=== PATIENT | female | born 1940 | race Caucasian/White ===

== ENCOUNTER → 2020-01-22 | Outpatient (CLI) | payer MEDICARE ==
[2020-01-22 12:35] LABS: EOS # 0.1 (0.04-0.40); EOS % 1.1 % (1.0-5.0); HEMATOCRIT 47.5 % (37.0-47.0); HEMOGLOBIN 14.6 g/dL (12.5-16.0); MEAN CELL VOLUME 95 fl (78-100); MEAN CORPUSCULAR HEMOGLOBIN 29 pg (27-31); MEAN CORPUSCULAR HGB CONC 31 g/dL (33-37); MONO # 0.4 (0.20-0.80); NEU # 5.5 (1.40-6.50); PLATELET COUNT 403 K/mm3 (130-400); RED BLOOD COUNT 4.99 M/mm3 (4.10-5.30); RED CELL DISTRIBUTION WIDTH 15.1 % (11.5-14.5)
[2020-01-22 13:01] LABS: ALBUMIN 3.3 g/dL (3.4-4.8); POTASSIUM 4.1 mmol/L (3.5-5.1)
[2020-01-22 13:02] LABS: CALCIUM 10.1 mg/dL (8.3-10.5)
[2020-01-22 13:03] LABS: TOTAL PROTEIN 8.3 g/dL (6.2-8.1)
[2020-01-22 13:05] LABS: TOTAL BILIRUBIN 0.4 mg/dL (0.2-1.2)
== END ==
LOC: RAD 12:04
PROVIDERS: Family Medicine
DX: Z00.00 Encounter for general adult medical examination without abnormal findings (principal); Z13.6 Encounter for screening for cardiovascular disorders; E78.5 Hyperlipidemia, unspecified; R73.9 Hyperglycemia, unspecified; E55.9 Vitamin D deficiency, unspecified; M79.89 Other specified soft tissue disorders; E03.9 Hypothyroidism, unspecified; M81.0 Age-related osteoporosis without current pathological fracture

== ENCOUNTER → 2020-01-23 | Outpatient (CLI) | payer MEDICARE | LOC: LAB 07:34 | DX: Z00.00 Encounter for general adult medical examination without abnormal findings (principal); R73.9 Hyperglycemia, unspecified ==

== ENCOUNTER → 2020-02-05 | Outpatient (CLI) | payer MEDICARE | LOC: MAMMO 02-04 13:45 → RAD 12:59 → MAMMO 13:45 | DX: Z13.820 Encounter for screening for osteoporosis (principal); C50.919 Malignant neoplasm of unspecified site of unspecified female breast; M81.0 Age-related osteoporosis without current pathological fracture ==

== ENCOUNTER 2020-09-05 22:40 | Emergency (ER) | payer MEDICARE ==
[2020-09-05 23:10] LABS: HEMATOCRIT 56.9 % (37.0-47.0); HEMOGLOBIN 17.2 g/dL (12.5-16.0); MEAN CELL VOLUME 96 fl (78-100); MEAN CORPUSCULAR HEMOGLOBIN 29 pg (27-31); MEAN CORPUSCULAR HGB CONC 30 g/dL (33-37); MEAN PLATELET VOLUME 9.7 fl (7.4-10.4); PLATELET COUNT 263 K/mm3 (130-400); RED CELL DISTRIBUTION WIDTH 17.1 % (11.5-14.5); WHITE BLOOD COUNT 17.8 K/mm3 (4.8-10.8)
[2020-09-05 23:33] LABS: LYMPHOCYTE 6 % (20-51); MONOCYTE 6 % (3-10); NEUTROPHILS 88 % (42-75)
[2020-09-05 23:47] LABS: ALBUMIN 3.6 g/dL (3.4-4.8); CALCIUM 9.6 mg/dL (8.3-10.5); POTASSIUM 5.3 mmol/L (3.5-5.1); TOTAL BILIRUBIN 0.9 mg/dL (0.2-1.2); TOTAL PROTEIN 7.9 g/dL (6.2-8.1); TROPONIN-I 0.11 ng/mL (<0.030)
[2020-09-06] MEDS ORDERED: LATANOPROST 2.2.5 ML OU (00:52)
[2020-09-06] MEDS ORDERED: CARDIZEM CD 24240 MG PO (00:52)
[2020-09-06] MEDS ORDERED: PREDNISONE20 M1 PO (00:53)
[2020-09-06] MEDS ORDERED: AZITHROMYCIN 500MGPK PO (00:53)
[2020-09-06] MEDS ORDERED: ATORVASTATIN CA20 MG PO (00:53)
[2020-09-06] MEDS ORDERED: LEVOTHYROXINE0.05 MG PO (00:53)
[2020-09-06 05:30] VITALS: BP 116/59
[2020-09-07 08:42] LABS: RESPIRATORY VIRUS PANEL-PCR AMS
[2020-09-07] MEDS ORDERED: ALDACTONE25 M1 PO (17:22)
[2020-09-07] MEDS ORDERED: SYMBICORT1 AE3 IH (17:24)
== END 2020-09-06 05:30 | disposition other institution (70) ==
LOC: ED 22:40
PROVIDERS: Family Medicine
DX: J20.9 Acute bronchitis, unspecified (principal); J44.0 Chronic obstructive pulmonary disease with (acute) lower respiratory infection; J44.1 Chronic obstructive pulmonary disease with (acute) exacerbation; J96.91 Respiratory failure, unspecified with hypoxia; N18.9 Chronic kidney disease, unspecified; E87.5 Hyperkalemia; R79.89 Other specified abnormal findings of blood chemistry; F17.200 Nicotine dependence, unspecified, uncomplicated; Z20.828 Contact with and (suspected) exposure to other viral communicable diseases; Z88.8 Allergy status to other drugs, medicaments and biological substances; Z79.1 Long term (current) use of non-steroidal anti-inflammatories (NSAID); Z79.51 Long term (current) use of inhaled steroids; Z79.83 Long term (current) use of bisphosphonates; Z79.890 Hormone replacement therapy
CPT/HCPCS: J0696; J2270; J7030

== ENCOUNTER 2020-09-06 04:46 | Inpatient (IN) | payer MEDICARE ==
[~2020-09-06] VITALS: Ht 160 cm; Wt 71.5 kg
[~2020-09-06 04:46] MED LIST: ATORVASTATIN CA20 MG PO; AZITHROMYCIN 500MGPK PO; CARDIZEM CD 24240 MG PO; LATANOPROST 2.2.5 ML OU; LEVOTHYROXINE0.05 MG PO; PREDNISONE20 M1 PO
[2020-09-06 05:56] VITALS: BP 116/56
[2020-09-06 08:14] LABS: HEMATOCRIT 55.1 % (37.0-47.0); HEMOGLOBIN 16.3 g/dL (12.5-16.0); MEAN CELL VOLUME 98 fl (78-100); MEAN CORPUSCULAR HEMOGLOBIN 29 pg (27-31); MEAN CORPUSCULAR HGB CONC 30 g/dL (33-37); MEAN PLATELET VOLUME 9.7 fl (7.4-10.4); PLATELET COUNT 189 K/mm3 (130-400); WHITE BLOOD COUNT 9.3 K/mm3 (4.8-10.8)
[2020-09-06 08:33] LABS: POTASSIUM 5.6 mmol/L (3.5-5.1)
[2020-09-06 09:22] LABS: LYMPHOCYTE 1 % (20-51); NEUTROPHILS 99 % (42-75)
[2020-09-06 09:37] VITALS: BP 105/64
[2020-09-06 09:47] LABS: TROPONIN-I 0.11 ng/mL (<0.030)
[2020-09-06 11:01] LABS: URINE APPEARANCE HAZY; URINE BILIRUBIN NEGATIVE (NEGATIVE); URINE BLOOD NEGATIVE (NEGATIVE); URINE COLOR YELLOW; URINE GLUCOSE NEGATIVE (NEGATIVE); URINE KETONE NEGATIVE (NEGATIVE); URINE LEUKOCYTE ESTERASE NEGATIVE (NEGATIVE); URINE MUCUS PRESENT (NOT PRESENT); URINE NITRATE NEGATIVE (NEGATIVE); URINE PROTEIN(semi-quant) TRACE mg/dL (NEGATIVE); URINE UROBILINOGEN NORMAL (NORMAL)
[2020-09-06 14:02] VITALS: BP 96/62
[2020-09-06 18:00] VITALS: BP 111/68
[2020-09-06 21:50] VITALS: BP 123/61
[2020-09-07] VITALS (7 sets, daily range): BP systolic 95–115; BP diastolic 47–69
[2020-09-07 08:01] LABS: HEMATOCRIT 44.3 % (37.0-47.0); HEMOGLOBIN 13.4 g/dL (12.5-16.0); MEAN CELL VOLUME 97 fl (78-100); MEAN CORPUSCULAR HEMOGLOBIN 30 pg (27-31); MEAN CORPUSCULAR HGB CONC 30 g/dL (33-37); MEAN PLATELET VOLUME 9.7 fl (7.4-10.4); PLATELET COUNT 156 K/mm3 (130-400); RED BLOOD COUNT 4.55 M/mm3 (4.10-5.30); RED CELL DISTRIBUTION WIDTH 16.1 % (11.5-14.5)
[2020-09-07 08:05] LABS: POTASSIUM 4.8 mmol/L (3.5-5.1)
[2020-09-07 08:07] LABS: CALCIUM 8.1 mg/dL (8.3-10.5)
[2020-09-07 08:30] LABS: LYMPHOCYTE 1 % (20-51); NEUTROPHILS 99 % (42-75)
[2020-09-07] MEDS ORDERED: ALDACTONE25 M1 PO (17:22)
[2020-09-07] MEDS ORDERED: SYMBICORT1 AE3 IH (17:24)
[2020-09-08 02:41] VITALS: BP 99/63
[2020-09-08 05:30] VITALS: BP 103/52
[2020-09-08 10:07] VITALS: BP 94/47
[2020-09-08 14:06] VITALS: BP 92/52
[2020-09-08 18:20] VITALS: BP 117/57
[2020-09-08 22:39] VITALS: BP 107/62
[2020-09-09 02:00] VITALS: BP 93/55
[2020-09-09 05:50] VITALS: BP 105/56
[2020-09-09 05:54] LABS: HEMATOCRIT 44.5 % (37.0-47.0); HEMOGLOBIN 13.1 g/dL (12.5-16.0); MEAN CELL VOLUME 99 fl (78-100); MEAN CORPUSCULAR HEMOGLOBIN 29 pg (27-31); MEAN PLATELET VOLUME 10.5 fl (7.4-10.4); PLATELET COUNT 163 K/mm3 (130-400); RED BLOOD COUNT 4.51 M/mm3 (4.10-5.30); RED CELL DISTRIBUTION WIDTH 16.9 % (11.5-14.5); WHITE BLOOD COUNT 11.9 K/mm3 (4.8-10.8)
[2020-09-09 06:09] LABS: MEAN CORPUSCULAR HGB CONC 29 g/dL (33-37)
[2020-09-09 06:12] LABS: POTASSIUM 4.6 mmol/L (3.5-5.1)
[2020-09-09 06:13] LABS: CALCIUM 8.2 mg/dL (8.3-10.5)
[2020-09-09 06:37] LABS: LYMPHOCYTE 1 % (20-51); MONOCYTE 1 % (3-10); NEUTROPHILS 98 % (42-75)
[2020-09-09 10:43] VITALS: BP 93/51
[2020-09-09 14:38] VITALS: BP 94/64
[2020-09-09 17:15] VITALS: BP 104/51
[2020-09-09 22:17] VITALS: BP 131/77
[2020-09-10 02:07] VITALS: BP 130/75
[2020-09-10 05:38] VITALS: BP 112/65
[2020-09-10 05:48] LABS: HEMATOCRIT 41.9 % (37.0-47.0); HEMOGLOBIN 12.9 g/dL (12.5-16.0); MEAN CELL VOLUME 97 fl (78-100); MEAN CORPUSCULAR HEMOGLOBIN 30 pg (27-31); MEAN CORPUSCULAR HGB CONC 31 g/dL (33-37); MEAN PLATELET VOLUME 10.6 fl (7.4-10.4); PLATELET COUNT 146 K/mm3 (130-400); RED BLOOD COUNT 4.32 M/mm3 (4.10-5.30); WHITE BLOOD COUNT 10.5 K/mm3 (4.8-10.8)
[2020-09-10 06:03] LABS: POTASSIUM 4.5 mmol/L (3.5-5.1)
[2020-09-10 06:04] LABS: CALCIUM 8.4 mg/dL (8.3-10.5)
[2020-09-10 06:18] LABS: LYMPHOCYTE 1 % (20-51); NEUTROPHILS 99 % (42-75)
[2020-09-10 10:12] VITALS: BP 117/57
[2020-09-10 13:10] VITALS: BP 117/57
== END 2020-09-10 14:10 | DRG 190 ==
LOC: MED/SURG 04:46
PROVIDERS: Nurse Practitioner Family; Physician Assistant; ADMIT Family Medicine
DX: J44.1 Chronic obstructive pulmonary disease with (acute) exacerbation (principal); J96.91 Respiratory failure, unspecified with hypoxia; J96.92 Respiratory failure, unspecified with hypercapnia; E46 Unspecified protein-calorie malnutrition; N17.9 Acute kidney failure, unspecified; E87.2 Acidosis; J90 Pleural effusion, not elsewhere classified; E03.9 Hypothyroidism, unspecified; E11.22 Type 2 diabetes mellitus with diabetic chronic kidney disease; Z20.828 Contact with and (suspected) exposure to other viral communicable diseases; N18.9 Chronic kidney disease, unspecified; E87.5 Hyperkalemia; R79.89 Other specified abnormal findings of blood chemistry; R53.1 Weakness; F17.210 Nicotine dependence, cigarettes, uncomplicated; Z68.22 Body mass index [BMI] 22.0-22.9, adult; Z85.42 Personal history of malignant neoplasm of other parts of uterus; Z85.3 Personal history of malignant neoplasm of breast; Z90.710 Acquired absence of both cervix and uterus
CPT/HCPCS: C9113; J1650; J1956; J2930; J7030

== ENCOUNTER → 2020-11-10 | Outpatient (CLI) | payer MEDICARE ==
[~2020-11-10] MED LIST changes: +ALDACTONE25 M1 PO; +SYMBICORT1 AE3 IH
[2020-11-10 12:38] LABS: EOS # 0.2 (0.04-0.40); EOS % 2.4 % (1.0-5.0); HEMATOCRIT 33.5 % (37.0-47.0); HEMOGLOBIN 9.9 g/dL (12.5-16.0); LYMPH# 1.1 (1.50-4.00); MEAN CELL VOLUME 97 fl (78-100); MEAN CORPUSCULAR HEMOGLOBIN 29 pg (27-31); MEAN CORPUSCULAR HGB CONC 30 g/dL (33-37); MEAN PLATELET VOLUME 9.7 fl (7.4-10.4); MONO # 0.6 (0.20-0.80); NEU # 5.5 (1.40-6.50); PLATELET COUNT 206 K/mm3 (130-400); RED BLOOD COUNT 3.46 M/mm3 (4.10-5.30); RED CELL DISTRIBUTION WIDTH 14.7 % (11.5-14.5); WHITE BLOOD COUNT 7.5 K/mm3 (4.8-10.8)
[2020-11-10 12:41] LABS: ALBUMIN 3.6 g/dL (3.4-4.8)
[2020-11-10 12:42] LABS: POTASSIUM 4.6 mmol/L (3.5-5.1)
[2020-11-10 12:44] LABS: TOTAL PROTEIN 6.8 g/dL (6.2-8.1)
[2020-11-10 12:46] LABS: TOTAL BILIRUBIN 0.4 mg/dL (0.2-1.2)
== END ==
LOC: LAB 10:32
PROVIDERS: Family Medicine
DX: E03.9 Hypothyroidism, unspecified (principal)

== ENCOUNTER → 2020-11-11 | Outpatient (CLI) | payer MEDICARE | LOC: LAB 16:35 | DX: E11.22 Type 2 diabetes mellitus with diabetic chronic kidney disease (principal); N18.9 Chronic kidney disease, unspecified ==

== ENCOUNTER → 2020-11-24 | Outpatient (CLI) | payer MEDICARE ==
[2020-11-24 14:44] LABS: EOS # 0.2 (0.04-0.40); EOS % 2.3 % (1.0-5.0); HEMATOCRIT 34.5 % (37.0-47.0); HEMOGLOBIN 10.1 g/dL (12.5-16.0); LYMPH# 1.2 (1.50-4.00); MEAN CELL VOLUME 98 fl (78-100); MEAN CORPUSCULAR HEMOGLOBIN 29 pg (27-31); MEAN PLATELET VOLUME 9.7 fl (7.4-10.4); MONO # 0.5 (0.20-0.80); NEU # 4.6 (1.40-6.50); PLATELET COUNT 186 K/mm3 (130-400); RED BLOOD COUNT 3.54 M/mm3 (4.10-5.30); RED CELL DISTRIBUTION WIDTH 14.8 % (11.5-14.5); WHITE BLOOD COUNT 6.4 K/mm3 (4.8-10.8)
[2020-11-24 14:49] LABS: MEAN CORPUSCULAR HGB CONC 29 g/dL (33-37)
== END ==
LOC: LAB 14:09
PROVIDERS: Family Medicine
DX: J44.1 Chronic obstructive pulmonary disease with (acute) exacerbation (principal)

== ENCOUNTER → 2021-03-11 | Outpatient (CLI) | payer MEDICARE ==
[~2021-03-11] MED LIST changes: +BACTRIM DS TAB1 EACH PO; +CEPHALEXIN250 MG PO; +FLEET ENEM1 BOT/133 RC; +IPRATROPIUM BROM3 M1 IH; +JANTOVEN4 MG PO; +MULTIPLE VITAM1 EACH PO; +NOVAPLUS L80 MG/0.8 SQ; +SUNMARK MUCUS600 MG PO; +VANCOCIN125 MG PO
== END ==
LOC: MAMMO 03-10 10:00
DX: Z12.31 Encounter for screening mammogram for malignant neoplasm of breast (principal); N63.11 Unspecified lump in the right breast, upper outer quadrant; R92.0 Mammographic microcalcification found on diagnostic imaging of breast

== ENCOUNTER → 2021-04-27 | Outpatient (CLI) | payer MEDICARE, MEDICAID | LOC: RAD 15:11 | DX: M50.31 Other cervical disc degeneration, high cervical region (principal) ==

== ENCOUNTER 2021-06-04 16:30 | Emergency (ER) | payer MEDICARE, MEDICAID ==
[~2021-06-04 16:30] MED LIST changes: -BACTRIM DS TAB1 EACH PO; -CEPHALEXIN250 MG PO; -FLEET ENEM1 BOT/133 RC; -IPRATROPIUM BROM3 M1 IH; -JANTOVEN4 MG PO; -MULTIPLE VITAM1 EACH PO; -NOVAPLUS L80 MG/0.8 SQ; -SUNMARK MUCUS600 MG PO; -VANCOCIN125 MG PO
[2021-06-04] MEDS ORDERED: IPRATROPIUM BROM3 M1 IH (19:29)
[2021-06-04] MEDS ORDERED: NOVAPLUS L80 MG/0.8 SQ (19:30)
[2021-06-04] MEDS ORDERED: FLEET ENEM1 BOT/133 RC (19:30)
[2021-06-04] MEDS ORDERED: MULTIPLE VITAM1 EACH PO (19:32)
[2021-06-04] MEDS ORDERED: SUNMARK MUCUS600 MG PO (19:32)
[2021-06-04] MEDS ORDERED: JANTOVEN4 MG PO (19:34)
[2021-06-04] MEDS ORDERED: BACTRIM DS TAB1 EACH PO (19:34)
[2021-06-04 20:35] LABS: CALCIUM 8.7 mg/dL (8.3-10.5)
[2021-06-05 00:30] LABS: POTASSIUM 6.1 mmol/L (3.5-5.1)
[2021-06-05 06:34] LABS: CALCIUM 8.6 mg/dL (8.3-10.5)
[2021-06-05 06:40] LABS: POTASSIUM 6.1 mmol/L (3.5-5.1)
[2021-06-05 11:35] LABS: BASO # 0.03 (0.02-0.10); EOS # 0.27 (0.04-0.40); EOS % 3.6 % (1.0-5.0); HEMATOCRIT 38.3 % (37.0-47.0); HEMOGLOBIN 12.4 g/dL (12.5-16.0); LYMPH# 1.14 (1.50-4.00); MEAN CELL VOLUME 95 fl (78-100); MEAN CORPUSCULAR HEMOGLOBIN 31 pg (27-31); MEAN CORPUSCULAR HGB CONC 32 g/dL (33-37); MEAN PLATELET VOLUME 9.2 fl (7.4-10.4); MONO # 0.65 (0.20-0.80); NEU # 5.36 (1.40-6.50); PLATELET COUNT 167 K/mm3 (130-400); RED BLOOD COUNT 4.03 M/mm3 (4.10-5.30); RED CELL DISTRIBUTION WIDTH 13.2 % (11.5-14.5); WHITE BLOOD COUNT 7.5 K/mm3 (4.8-10.8)
[2021-06-05] MEDS ORDERED: CEPHALEXIN250 MG PO (15:34)
[2021-06-05] MEDS ORDERED: NOVAPLUS L80 MG/0.8 SQ (15:34)
[2021-06-05 16:30] VITALS: BP 132/75
== END 2021-06-05 16:30 | disposition home or self-care (01) ==
LOC: ED 16:30
PROVIDERS: Family Medicine
DX: I82.402 Acute embolism and thrombosis of unspecified deep veins of left lower extremity (principal); E87.5 Hyperkalemia; L03.116 Cellulitis of left lower limb; E87.2 Acidosis; Z87.891 Personal history of nicotine dependence; E11.22 Type 2 diabetes mellitus with diabetic chronic kidney disease; I12.9 Hypertensive chronic kidney disease with stage 1 through stage 4 chronic kidney disease, or unspecified chronic kidney disease; N18.9 Chronic kidney disease, unspecified; J44.9 Chronic obstructive pulmonary disease, unspecified; Z79.01 Long term (current) use of anticoagulants; Z79.899 Other long term (current) drug therapy
CPT/HCPCS: J0696; J1650; J1815; J1940

== ENCOUNTER → 2021-06-04 | Outpatient (CLI) | payer MEDICARE, MEDICAID ==
[2021-06-04 15:01] LABS: PROTHROMBIN TIME 9.6 SECONDS (9.0-12.0)
[2021-06-04 15:03] LABS: CALCIUM 8.9 mg/dL (8.3-10.5)
[2021-06-04 15:17] LABS: POTASSIUM 6.5 mmol/L (3.5-5.1)
== END ==
LOC: LAB 09:47 → VAS 09:47 → RAD 10:00 → VAS 10:00
PROVIDERS: Family Medicine
DX: I82.409 Acute embolism and thrombosis of unspecified deep veins of unspecified lower extremity (principal); L03.116 Cellulitis of left lower limb

== ENCOUNTER → 2021-06-07 | Outpatient (CLI) | payer MEDICARE, MEDICAID ==
[~2021-06-07] MED LIST changes: +BACTRIM DS TAB1 EACH PO; +CEPHALEXIN250 MG PO; +FLEET ENEM1 BOT/133 RC; +IPRATROPIUM BROM3 M1 IH; +JANTOVEN4 MG PO; +MULTIPLE VITAM1 EACH PO; +NOVAPLUS L80 MG/0.8 SQ; +SUNMARK MUCUS600 MG PO; +VANCOCIN125 MG PO
[2021-06-07 09:40] LABS: PROTHROMBIN TIME 18.9 SECONDS (9.0-12.0)
[2021-06-07 10:07] LABS: POTASSIUM 5.1 mmol/L (3.5-5.1)
[2021-06-07 10:08] LABS: CALCIUM 8.7 mg/dL (8.3-10.5)
== END ==
LOC: LAB 09:14
PROVIDERS: Family Medicine
DX: I82.402 Acute embolism and thrombosis of unspecified deep veins of left lower extremity (principal)

== ENCOUNTER → 2021-06-11 | Outpatient (CLI) | payer MEDICARE, MEDICAID ==
[2021-06-11 13:48] LABS: PROTHROMBIN TIME 34.1 SECONDS (9.0-12.0)
== END ==
LOC: LAB 13:22
PROVIDERS: Family Medicine
DX: I87.2 Venous insufficiency (chronic) (peripheral) (principal); Z01.89 Encounter for other specified special examinations

== ENCOUNTER 2021-06-14 14:10 | Emergency (ER) | payer MEDICARE, MEDICAID ==
[~2021-06-14 14:10] MED LIST changes: -VANCOCIN125 MG PO
[2021-06-14 14:47] LABS: BASO # 0.02 (0.02-0.10); EOS # 0.01 (0.04-0.40); EOS % 0.1 % (1.0-5.0); HEMATOCRIT 39.4 % (37.0-47.0); HEMOGLOBIN 12.2 g/dL (12.5-16.0); MEAN CELL VOLUME 96 fl (78-100); MEAN CORPUSCULAR HEMOGLOBIN 30 pg (27-31); MEAN CORPUSCULAR HGB CONC 31 g/dL (33-37); MEAN PLATELET VOLUME 8.8 fl (7.4-10.4); MONO # 0.69 (0.20-0.80); PLATELET COUNT 178 K/mm3 (130-400); RED BLOOD COUNT 4.09 M/mm3 (4.10-5.30); RED CELL DISTRIBUTION WIDTH 13.3 % (11.5-14.5); WHITE BLOOD COUNT 14.3 K/mm3 (4.8-10.8)
[2021-06-14 15:03] LABS: ALBUMIN 3.6 g/dL (3.4-4.8); POTASSIUM 4.4 mmol/L (3.5-5.1)
[2021-06-14 15:05] LABS: CALCIUM 9.1 mg/dL (8.3-10.5)
[2021-06-14 15:06] LABS: TOTAL PROTEIN 6.6 g/dL (6.2-8.1)
[2021-06-14 15:07] LABS: PARTIAL THROMBOPLASTIN TIME 64.9 SECONDS (21.0-32.0)
[2021-06-14 15:08] LABS: TOTAL BILIRUBIN 0.3 mg/dL (0.2-1.2)
[2021-06-14 15:25] LABS: PROTHROMBIN TIME 40.9 SECONDS (9.0-12.0)
[2021-06-14 16:02] LABS: URINE APPEARANCE HAZY; URINE COLOR YELLOW
[2021-06-14 16:03] LABS: URINE BILIRUBIN NEGATIVE (NEGATIVE); URINE BLOOD TRACE (NEGATIVE); URINE GLUCOSE NEGATIVE (NEGATIVE); URINE KETONE NEGATIVE (NEGATIVE); URINE LEUKOCYTE ESTERASE TRACE (NEGATIVE); URINE NITRATE NEGATIVE (NEGATIVE); URINE PROTEIN(semi-quant) 1+ mg/dL (NEGATIVE); URINE UROBILINOGEN NORMAL (NORMAL)
[2021-06-14 18:10] VITALS: BP 139/71
== END 2021-06-14 17:23 | disposition other institution (70) ==
LOC: ED 14:10
PROVIDERS: Nurse Practitioner
DX: K52.1 Toxic gastroenteritis and colitis (principal); T36.1X5A Adverse effect of cephalosporins and other beta-lactam antibiotics, initial encounter; E11.22 Type 2 diabetes mellitus with diabetic chronic kidney disease; I12.9 Hypertensive chronic kidney disease with stage 1 through stage 4 chronic kidney disease, or unspecified chronic kidney disease; N18.9 Chronic kidney disease, unspecified; F03.90 Unspecified dementia, unspecified severity, without behavioral disturbance, psychotic disturbance, mood disturbance, and anxiety; Z79.01 Long term (current) use of anticoagulants; Z20.822 Contact with and (suspected) exposure to COVID-19
CPT/HCPCS: J7030; Q9967

== ENCOUNTER 2021-06-14 17:24 | Inpatient (IN) | payer MEDICARE, MEDICAID ==
[2021-06-14 21:47] VITALS: BP 118/71
[2021-06-15 01:48] VITALS: BP 119/66
[2021-06-15 05:44] VITALS: BP 133/60
[2021-06-15 07:35] LABS: BASO # 0.02 (0.02-0.10); EOS # 0.05 (0.04-0.40); EOS % 0.5 % (1.0-5.0); HEMATOCRIT 35.6 % (37.0-47.0); HEMOGLOBIN 11.1 g/dL (12.5-16.0); LYMPH# 1.06 (1.50-4.00); MEAN CELL VOLUME 98 fl (78-100); MEAN CORPUSCULAR HEMOGLOBIN 31 pg (27-31); MEAN CORPUSCULAR HGB CONC 31 g/dL (33-37); MEAN PLATELET VOLUME 9.4 fl (7.4-10.4); MONO # 0.75 (0.20-0.80); NEU # 8.95 (1.40-6.50); PLATELET COUNT 154 K/mm3 (130-400); RED BLOOD COUNT 3.64 M/mm3 (4.10-5.30); RED CELL DISTRIBUTION WIDTH 13.6 % (11.5-14.5); WHITE BLOOD COUNT 10.9 K/mm3 (4.8-10.8)
[2021-06-15 07:39] LABS: ALBUMIN 3.1 g/dL (3.4-4.8)
[2021-06-15 07:40] LABS: CALCIUM 8.5 mg/dL (8.3-10.5)
[2021-06-15 07:41] LABS: TOTAL PROTEIN 5.7 g/dL (6.2-8.1)
[2021-06-15 07:43] LABS: TOTAL BILIRUBIN 0.3 mg/dL (0.2-1.2)
[2021-06-15 07:58] LABS: PROTHROMBIN TIME 45.9 SECONDS (9.0-12.0)
[2021-06-15 09:37] VITALS: BP 102/59
[2021-06-15 12:24] LABS: URINE APPEARANCE CLEAR; URINE COLOR LT YELLOW; URINE GLUCOSE NEGATIVE (NEGATIVE); URINE KETONE NEGATIVE (NEGATIVE); URINE PROTEIN(semi-quant) TRACE mg/dL (NEGATIVE)
[2021-06-15 12:25] LABS: URINE BILIRUBIN NEGATIVE (NEGATIVE); URINE BLOOD NEGATIVE (NEGATIVE); URINE LEUKOCYTE ESTERASE NEGATIVE (NEGATIVE); URINE MUCUS PRESENT (NOT PRESENT); URINE NITRATE NEGATIVE (NEGATIVE); URINE UROBILINOGEN NORMAL (NORMAL); URINE WBC 0-1 /hpf (0-3)
[2021-06-15 13:10] VITALS: BP 126/58
[2021-06-15 17:55] VITALS: BP 115/58
[2021-06-15 21:50] VITALS: BP 105/53
[2021-06-16 02:02] VITALS: BP 118/62
[2021-06-16 05:58] VITALS: BP 128/53
[2021-06-16 07:59] LABS: BASO # 0.01 (0.02-0.10); EOS # 0.16 (0.04-0.40); EOS % 2.3 % (1.0-5.0); HEMATOCRIT 33.5 % (37.0-47.0); HEMOGLOBIN 10.4 g/dL (12.5-16.0); LYMPH# 0.93 (1.50-4.00); MEAN CELL VOLUME 97 fl (78-100); MEAN CORPUSCULAR HEMOGLOBIN 30 pg (27-31); MEAN CORPUSCULAR HGB CONC 31 g/dL (33-37); MEAN PLATELET VOLUME 9.5 fl (7.4-10.4); MONO # 0.69 (0.20-0.80); NEU # 5.03 (1.40-6.50); PLATELET COUNT 143 K/mm3 (130-400); RED BLOOD COUNT 3.46 M/mm3 (4.10-5.30); RED CELL DISTRIBUTION WIDTH 13.5 % (11.5-14.5); WHITE BLOOD COUNT 6.8 K/mm3 (4.8-10.8)
[2021-06-16 08:07] LABS: POTASSIUM 4.2 mmol/L (3.5-5.1)
[2021-06-16 08:08] LABS: CALCIUM 8.3 mg/dL (8.3-10.5)
[2021-06-16 08:48] LABS: PROTHROMBIN TIME 53.2 SECONDS (9.0-12.0)
[2021-06-16 10:00] VITALS: BP 142/50
[2021-06-16 13:57] VITALS: BP 110/51
[2021-06-16 18:00] VITALS: BP 121/58
[2021-06-16 22:03] VITALS: BP 112/59
[2021-06-17 01:52] VITALS: BP 122/60
[2021-06-17 05:38] VITALS: BP 150/58
[2021-06-17 08:11] LABS: BASO # 0.02 (0.02-0.10); EOS # 0.25 (0.04-0.40); EOS % 4.2 % (1.0-5.0); HEMATOCRIT 37.1 % (37.0-47.0); HEMOGLOBIN 11.8 g/dL (12.5-16.0); LYMPH# 1.39 (1.50-4.00); MEAN CELL VOLUME 94 fl (78-100); MEAN CORPUSCULAR HEMOGLOBIN 30 pg (27-31); MEAN CORPUSCULAR HGB CONC 32 g/dL (33-37); MEAN PLATELET VOLUME 9.5 fl (7.4-10.4); MONO # 0.46 (0.20-0.80); NEU # 3.81 (1.40-6.50); PLATELET COUNT 188 K/mm3 (130-400); RED BLOOD COUNT 3.94 M/mm3 (4.10-5.30); RED CELL DISTRIBUTION WIDTH 13.2 % (11.5-14.5)
[2021-06-17 08:35] LABS: POTASSIUM 4.2 mmol/L (3.5-5.1)
[2021-06-17 09:10] LABS: PROTHROMBIN TIME 46.1 SECONDS (9.0-12.0)
[2021-06-17 10:21] VITALS: BP 121/53
[2021-06-17] MEDS ORDERED: VANCOCIN125 MG PO (11:52)
== END 2021-06-17 12:18 | DRG 372 ==
LOC: MED/SURG 17:24
PROVIDERS: Nurse Practitioner; Physician Assistant; ADMIT Nurse Practitioner
DX: A04.72 Enterocolitis due to Clostridium difficile, not specified as recurrent (principal); L03.116 Cellulitis of left lower limb; I82.412 Acute embolism and thrombosis of left femoral vein; K52.1 Toxic gastroenteritis and colitis; J44.9 Chronic obstructive pulmonary disease, unspecified; T36.95XA Adverse effect of unspecified systemic antibiotic, initial encounter; N18.9 Chronic kidney disease, unspecified; I12.9 Hypertensive chronic kidney disease with stage 1 through stage 4 chronic kidney disease, or unspecified chronic kidney disease; Z66 Do not resuscitate; E11.22 Type 2 diabetes mellitus with diabetic chronic kidney disease; I89.0 Lymphedema, not elsewhere classified; F03.90 Unspecified dementia, unspecified severity, without behavioral disturbance, psychotic disturbance, mood disturbance, and anxiety; Z79.01 Long term (current) use of anticoagulants; Z85.3 Personal history of malignant neoplasm of breast; Z85.42 Personal history of malignant neoplasm of other parts of uterus; Z90.710 Acquired absence of both cervix and uterus; Z87.891 Personal history of nicotine dependence
CPT/HCPCS: J7030

== ENCOUNTER → 2021-06-18 | Outpatient (CLI) | payer MEDICARE, MEDICAID ==
[~2021-06-18] MED LIST changes: +VANCOCIN125 MG PO
[2021-06-18 12:23] LABS: PROTHROMBIN TIME 32.9 SECONDS (9.0-12.0)
== END ==
LOC: LAB 11:59
PROVIDERS: Family Medicine
DX: I82.402 Acute embolism and thrombosis of unspecified deep veins of left lower extremity (principal); R79.1 Abnormal coagulation profile; K52.1 Toxic gastroenteritis and colitis

== ENCOUNTER → 2021-06-19 | Outpatient (CLI) | payer MEDICARE, MEDICAID ==
[2021-06-19 13:22] LABS: PROTHROMBIN TIME 23.2 SECONDS (9.0-12.0)
== END ==
LOC: LAB 12:18
PROVIDERS: Family Medicine
DX: Z01.89 Encounter for other specified special examinations (principal)

== ENCOUNTER → 2021-06-21 | Outpatient (REF) ==
[2021-06-21 12:11] LABS: PROTHROMBIN TIME 13.1 SECONDS (9.0-12.0)
== END ==
LOC: LAB 11:49
PROVIDERS: Family Medicine
DX: I82.4Z2 Acute embolism and thrombosis of unspecified deep veins of left distal lower extremity (principal)

== ENCOUNTER → 2021-06-30 | Outpatient (REF) ==
[2021-06-30 10:19] LABS: ALBUMIN 3.4 g/dL (3.4-4.8); POTASSIUM 4.5 mmol/L (3.5-5.1)
[2021-06-30 10:21] LABS: CALCIUM 8.6 mg/dL (8.3-10.5)
[2021-06-30 10:22] LABS: TOTAL PROTEIN 6.7 g/dL (6.2-8.1)
[2021-06-30 10:24] LABS: TOTAL BILIRUBIN 0.5 mg/dL (0.2-1.2)
[2021-06-30 11:28] LABS: PROTHROMBIN TIME 18.6 SECONDS (9.0-12.0)
== END ==
LOC: LAB 09:51
PROVIDERS: Family Medicine
DX: I82.409 Acute embolism and thrombosis of unspecified deep veins of unspecified lower extremity (principal)

== ENCOUNTER → 2021-07-07 | Outpatient (REF) ==
[2021-07-07 12:15] LABS: PROTHROMBIN TIME 40.7 SECONDS (9.0-12.0)
== END ==
LOC: LAB 11:13
PROVIDERS: Family Medicine
DX: J96.21 Acute and chronic respiratory failure with hypoxia (principal); E11.22 Type 2 diabetes mellitus with diabetic chronic kidney disease

== ENCOUNTER → 2021-07-09 | Outpatient (REF) ==
[2021-07-09 16:50] LABS: PROTHROMBIN TIME 31.4 SECONDS (9.0-12.0)
== END ==
LOC: LAB 12:01 → EDSTATUS 12:51 → LAB 12:53
PROVIDERS: Family Medicine
DX: I82.4Z2 Acute embolism and thrombosis of unspecified deep veins of left distal lower extremity (principal); J44.1 Chronic obstructive pulmonary disease with (acute) exacerbation

== ENCOUNTER → 2021-07-16 | Outpatient (REF) | LOC: LAB 11:09 | PROVIDERS: Family Medicine | DX: I82.4Z2 Acute embolism and thrombosis of unspecified deep veins of left distal lower extremity (principal) ==

== ENCOUNTER → 2021-07-19 | Outpatient (REF) | LOC: LAB 10:16 | PROVIDERS: Family Medicine | DX: I82.4Z2 Acute embolism and thrombosis of unspecified deep veins of left distal lower extremity (principal) ==

== ENCOUNTER → 2021-07-26 | Outpatient (REF) ==
[2021-07-26 14:10] LABS: PROTHROMBIN TIME 18.9 SECONDS (9.0-12.0)
== END ==
LOC: LAB 12:16
PROVIDERS: Family Medicine
DX: I82.4Z2 Acute embolism and thrombosis of unspecified deep veins of left distal lower extremity (principal); Z79.01 Long term (current) use of anticoagulants

== ENCOUNTER → 2021-08-03 | Outpatient (CLI) | payer MEDICARE, MEDICAID ==
[2021-08-03 09:39] LABS: PROTHROMBIN TIME 23.5 SECONDS (9.0-12.0)
== END ==
LOC: LAB 08:55
PROVIDERS: Family Medicine
DX: I82.4Z2 Acute embolism and thrombosis of unspecified deep veins of left distal lower extremity (principal)

== ENCOUNTER 2021-08-17 13:40 | Emergency (ER) | payer MEDICARE, MEDICAID ==
[~2021-08-17] VITALS: Ht 165.1 cm; Wt 75.7 kg
[2021-08-17 13:53] VITALS: BP 129/76
== END 2021-08-17 15:45 | disposition home or self-care (01) ==
LOC: ED 13:40
PROVIDERS: Physician Assistant
DX: R79.0 Abnormal level of blood mineral (principal); J44.9 Chronic obstructive pulmonary disease, unspecified; Z79.01 Long term (current) use of anticoagulants; Z79.899 Other long term (current) drug therapy

== ENCOUNTER 2021-11-22 14:46 | Emergency (ER) | payer MEDICARE, MEDICAID ==
[2021-11-22 15:31] LABS: BASO # 0.03 K/mm3 (0.02-0.10); EOS # 0.21 K/mm3 (0.04-0.40); EOS % 3.3 % (1.0-5.0); HEMATOCRIT 41.2 % (37.0-47.0); HEMOGLOBIN 12.2 g/dL (12.5-16.0); LYMPH# 1.33 K/mm3 (1.50-4.00); MEAN CELL VOLUME 89 fl (78-100); MEAN CORPUSCULAR HEMOGLOBIN 26 pg (27-31); MEAN CORPUSCULAR HGB CONC 30 g/dL (33-37); MEAN PLATELET VOLUME 8.8 fl (7.4-10.4); MONO # 0.46 K/mm3 (0.20-0.80); NEU # 4.37 K/mm3 (1.40-6.50); PLATELET COUNT 192 K/mm3 (130-400); RED BLOOD COUNT 4.64 M/mm3 (4.10-5.30); WHITE BLOOD COUNT 6.4 K/mm3 (4.8-10.8)
[2021-11-22] MEDS ORDERED: WARFARIN SODIUM3 MG PO (15:39)
[2021-11-22 15:40] LABS: ALBUMIN 3.7 g/dL (3.4-4.8); POTASSIUM 4.6 mmol/L (3.5-5.1)
[2021-11-22 15:41] LABS: CALCIUM 8.8 mg/dL (8.3-10.5)
[2021-11-22] MEDS ORDERED: HCTZ 25MG25 MG PO (15:41)
[2021-11-22 15:42] LABS: TOTAL PROTEIN 7.4 g/dL (6.2-8.1)
[2021-11-22 15:44] LABS: TOTAL BILIRUBIN 0.2 mg/dL (0.2-1.2)
[2021-11-22 15:47] LABS: PROTHROMBIN TIME 35.7 SECONDS (9.0-12.0)
[2021-11-22] MEDS ORDERED: MORGIDOX 1X100100 MG PO (17:03)
[2021-11-22 17:42] VITALS: BP 164/68
== END 2021-11-22 17:42 | disposition home or self-care (01) ==
LOC: ED 14:46
PROVIDERS: Nurse Practitioner
DX: L03.116 Cellulitis of left lower limb (principal); N18.30 Chronic kidney disease, stage 3 unspecified; E78.5 Hyperlipidemia, unspecified; E03.9 Hypothyroidism, unspecified; Z86.73 Personal history of transient ischemic attack (TIA), and cerebral infarction without residual deficits; Z99.3 Dependence on wheelchair; Z79.01 Long term (current) use of anticoagulants; Z79.890 Hormone replacement therapy; Z79.899 Other long term (current) drug therapy

== ENCOUNTER → 2021-12-25 | Outpatient (CLI) | payer MEDICARE, MEDICAID ==
[~2021-12-25] MED LIST changes: +HCTZ 25MG25 MG PO; +MORGIDOX 1X100100 MG PO; +WARFARIN SODIUM3 MG PO
[2021-12-25 17:21] LABS: URINE APPEARANCE CLEAR; URINE BILIRUBIN NEGATIVE (NEGATIVE); URINE COLOR YELLOW; URINE GLUCOSE NEGATIVE (NEGATIVE); URINE KETONE NEGATIVE (NEGATIVE); URINE NITRATE NEGATIVE (NEGATIVE); URINE PROTEIN(semi-quant) 1+ (NEGATIVE); URINE UROBILINOGEN NORMAL (NORMAL)
[2021-12-25 17:22] LABS: URINE BLOOD NEGATIVE (NEGATIVE); URINE LEUKOCYTE ESTERASE NEGATIVE (NEGATIVE); URINE WBC 0-1 /hpf (0-3)
== END ==
LOC: LAB 15:26
PROVIDERS: Family Medicine
DX: Z01.89 Encounter for other specified special examinations (principal)

== ENCOUNTER → 2022-01-25 | Outpatient (CLI) | payer MEDICARE, MEDICAID ==
[2022-01-25 15:41] LABS: HEMATOCRIT 35.2 % (37.0-47.0); HEMOGLOBIN 10.6 g/dL (12.5-16.0); MEAN PLATELET VOLUME 9.5 fl (7.4-10.4); RED BLOOD COUNT 3.84 M/mm3 (4.10-5.30); RED CELL DISTRIBUTION WIDTH 16.2 % (11.5-14.5); WHITE BLOOD COUNT 5.7 K/mm3 (4.8-10.8)
[2022-01-25 15:45] LABS: ALBUMIN 3.1 g/dL (3.4-4.8)
[2022-01-25 15:46] LABS: POTASSIUM 4.2 mmol/L (3.5-5.1)
[2022-01-25 15:47] LABS: CALCIUM 8.3 mg/dL (8.3-10.5)
[2022-01-25 15:48] LABS: TOTAL PROTEIN 6.1 g/dL (6.2-8.1)
[2022-01-25 15:50] LABS: TOTAL BILIRUBIN 0.2 mg/dL (0.2-1.2)
== END ==
LOC: LAB 15:01
PROVIDERS: Family Medicine
DX: I82.422 Acute embolism and thrombosis of left iliac vein (principal)

== ENCOUNTER → 2022-01-31 | Outpatient (CLI) | payer MEDICARE, MEDICAID ==
[2022-01-31 12:42] LABS: PROTHROMBIN TIME 17.7 SECONDS (9.0-12.0)
== END ==
LOC: LAB 11:53
PROVIDERS: Family Medicine
DX: Z86.73 Personal history of transient ischemic attack (TIA), and cerebral infarction without residual deficits (principal)

== ENCOUNTER → 2022-01-31 | Outpatient (CLI) | payer MEDICARE, MEDICAID | LOC: VAS 12:44 → RAD 13:00 | DX: I82.4Z2 Acute embolism and thrombosis of unspecified deep veins of left distal lower extremity (principal) ==

== ENCOUNTER → 2022-06-13 | Outpatient (CLI) | payer MEDICARE, MEDICAID ==
[2022-06-13 07:01] LABS: URINE APPEARANCE HAZY; URINE BILIRUBIN NEGATIVE (NEGATIVE); URINE BLOOD NEGATIVE (NEGATIVE); URINE COLOR YELLOW; URINE GLUCOSE NEGATIVE (NEGATIVE); URINE KETONE NEGATIVE (NEGATIVE); URINE LEUKOCYTE ESTERASE 1+ (NEGATIVE); URINE NITRATE POSITIVE (NEGATIVE); URINE PROTEIN(semi-quant) NEGATIVE (NEGATIVE); URINE UROBILINOGEN NORMAL (NORMAL)
[2022-06-13 07:02] LABS: URINE WBC 16-30 /hpf (0-3)
== END ==
LOC: LAB 05:47
DX: N39.0 Urinary tract infection, site not specified (principal)

== ENCOUNTER → 2022-06-27 | Outpatient (CLI) | payer MEDICARE, MEDICAID ==
[2022-06-27 07:58] LABS: HEMATOCRIT 43.3 % (37.0-47.0); HEMOGLOBIN 13.1 g/dL (12.5-16.0); MEAN PLATELET VOLUME 9.8 fl (7.4-10.4); RED BLOOD COUNT 4.64 M/mm3 (4.10-5.30); RED CELL DISTRIBUTION WIDTH 13.9 % (11.5-14.5)
[2022-06-27 08:05] LABS: ALBUMIN 3.8 g/dL (3.4-4.8); POTASSIUM 4.2 mmol/L (3.5-5.1)
[2022-06-27 08:08] LABS: TOTAL PROTEIN 7.3 g/dL (6.2-8.1)
[2022-06-27 08:10] LABS: TOTAL BILIRUBIN 0.3 mg/dL (0.2-1.2)
== END ==
LOC: LAB 07:42
PROVIDERS: Nurse Practitioner
DX: I82.4Z2 Acute embolism and thrombosis of unspecified deep veins of left distal lower extremity (principal)

== ENCOUNTER → 2022-07-15 | Outpatient (CLI) | payer MEDICARE, MEDICAID ==
[2022-07-15 13:59] LABS: BASO # 0.03 K/mm3 (0.02-0.10); EOS # 0.26 K/mm3 (0.04-0.40); EOS % 3.5 % (1.0-5.0); HEMATOCRIT 41.2 % (37.0-47.0); HEMOGLOBIN 12.3 g/dL (12.5-16.0); LYMPH# 1.14 K/mm3 (1.50-4.00); MEAN CELL VOLUME 94 fl (78-100); MEAN CORPUSCULAR HEMOGLOBIN 28 pg (27-31); MEAN CORPUSCULAR HGB CONC 30 g/dL (33-37); MEAN PLATELET VOLUME 9.8 fl (7.4-10.4); NEU # 5.46 K/mm3 (1.40-6.50); PLATELET COUNT 193 K/mm3 (130-400); RED BLOOD COUNT 4.37 M/mm3 (4.10-5.30); RED CELL DISTRIBUTION WIDTH 13.8 % (11.5-14.5); WHITE BLOOD COUNT 7.4 K/mm3 (4.8-10.8)
[2022-07-15 14:10] LABS: ALBUMIN 3.6 g/dL (3.4-4.8)
[2022-07-15 14:12] LABS: CALCIUM 8.8 mg/dL (8.3-10.5)
[2022-07-15 14:13] LABS: TOTAL PROTEIN 6.9 g/dL (6.2-8.1)
[2022-07-15 14:15] LABS: TOTAL BILIRUBIN 0.3 mg/dL (0.2-1.2)
[2022-07-15 14:27] LABS: D-DIMER 0.49 mg/L FEU (0.15-0.50)
== END ==
LOC: LAB 13:48
PROVIDERS: Family Medicine
DX: M79.89 Other specified soft tissue disorders (principal)

== ENCOUNTER → 2022-08-05 | Outpatient (CLI) | payer MEDICARE, MEDICAID | LOC: LAB 15:21 | DX: L03.116 Cellulitis of left lower limb (principal); E78.00 Pure hypercholesterolemia, unspecified ==

== ENCOUNTER → 2022-09-23 | Outpatient (CLI) | payer MEDICARE, MEDICAID ==
[~2022-09-23] MED LIST changes: +ELIQUIS5 MG PO; +GOOD NEIGH1200 MG/15 PO; +LEXAPRO 10MG10 MG PO; +MORPHINE S20 MG/5 M1 PO; +MUCUS RELIEF600 MG PO; +SEPTRA DS 8001 TAB PO
[2022-09-23 13:07] LABS: HEMATOCRIT 30.8 % (37.0-47.0); HEMOGLOBIN 8.8 g/dL (12.5-16.0); MEAN PLATELET VOLUME 9.3 fl (7.4-10.4); RED BLOOD COUNT 3.44 M/mm3 (4.10-5.30); RED CELL DISTRIBUTION WIDTH 15.8 % (11.5-14.5); WHITE BLOOD COUNT 8.5 K/mm3 (4.8-10.8)
[2022-09-23 13:32] LABS: CALCIUM 8.8 mg/dL (8.3-10.5)
== END ==
LOC: LAB 12:49
DX: J44.1 Chronic obstructive pulmonary disease with (acute) exacerbation (principal); I10 Essential (primary) hypertension

== ENCOUNTER → 2022-09-25 | Outpatient (CLI) | payer MEDICARE, MEDICAID ==
[2022-09-25 12:05] LABS: HEMATOCRIT 26.6 % (37.0-47.0); HEMOGLOBIN 7.7 g/dL (12.5-16.0); MEAN CELL VOLUME 88 fl (78-100); MEAN CORPUSCULAR HEMOGLOBIN 26 pg (27-31); MEAN CORPUSCULAR HGB CONC 29 g/dL (33-37); PLATELET COUNT 355 K/mm3 (130-400); RED BLOOD COUNT 3.01 M/mm3 (4.10-5.30); RED CELL DISTRIBUTION WIDTH 16.6 % (11.5-14.5); WHITE BLOOD COUNT 6.5 K/mm3 (4.8-10.8)
[2022-09-25 12:14] LABS: ALBUMIN 3.1 g/dL (3.4-4.8); POTASSIUM 4.2 mmol/L (3.5-5.1)
[2022-09-25 12:16] LABS: CALCIUM 8.2 mg/dL (8.3-10.5)
[2022-09-25 12:19] LABS: TOTAL BILIRUBIN 0.3 mg/dL (0.2-1.2)
[2022-09-25 12:31] LABS: HYPOCHROMIA 2+; LYMPHOCYTE 9 % (20-51); MONOCYTE 4 % (3-10); NEUTROPHILS 85 % (42-75); OVALOCYTES 1+
[2022-09-25 12:42] LABS: BASO # 0.02 K/mm3 (0.02-0.10); EOS # 0.03 K/mm3 (0.04-0.40); EOS % 0.5 % (1.0-5.0); LYMPH# 0.49 K/mm3 (1.50-4.00); NEU # 5.36 K/mm3 (1.40-6.50)
[2022-09-25 12:43] LABS: MEAN PLATELET VOLUME 9.6 fl (7.4-10.4)
== END ==
LOC: LAB 11:37
DX: R06.02 Shortness of breath (principal)

== ENCOUNTER 2022-09-27 09:33 | Emergency (ER) | payer MEDICARE, MEDICAID ==
[~2022-09-27] VITALS: Ht 162.6 cm; Wt 80.7 kg
[~2022-09-27 09:33] MED LIST changes: -ELIQUIS5 MG PO; -GOOD NEIGH1200 MG/15 PO; -LEXAPRO 10MG10 MG PO; -MORPHINE S20 MG/5 M1 PO; -MUCUS RELIEF600 MG PO; -SEPTRA DS 8001 TAB PO
[2022-09-27 10:30] LABS: HEMOGLOBIN 8.1 g/dL (12.5-16.0); MEAN CELL VOLUME 85 fl (78-100); MEAN CORPUSCULAR HEMOGLOBIN 26 pg (27-31); MEAN CORPUSCULAR HGB CONC 30 g/dL (33-37); MEAN PLATELET VOLUME 9.2 fl (7.4-10.4); PLATELET COUNT 262 K/mm3 (130-400); RED BLOOD COUNT 3.18 M/mm3 (4.10-5.30); RED CELL DISTRIBUTION WIDTH 16.8 % (11.5-14.5); WHITE BLOOD COUNT 13.8 K/mm3 (4.8-10.8)
[2022-09-27 10:38] LABS: ALBUMIN 3.5 g/dL (3.4-4.8)
[2022-09-27 10:39] LABS: POTASSIUM 4.4 mmol/L (3.5-5.1)
[2022-09-27 10:40] LABS: CALCIUM 8.7 mg/dL (8.3-10.5)
[2022-09-27 10:41] LABS: TOTAL PROTEIN 7.3 g/dL (6.2-8.1)
[2022-09-27 10:43] LABS: TOTAL BILIRUBIN 0.3 mg/dL (0.2-1.2)
[2022-09-27 10:53] LABS: TROPONIN-I 0.037 ng/mL (<0.030)
[2022-09-27] MEDS ORDERED: SEPTRA DS 8001 TAB PO (11:13)
[2022-09-27] MEDS ORDERED: ELIQUIS5 MG PO (11:14)
[2022-09-27] MEDS ORDERED: GOOD NEIGH1200 MG/15 PO (11:16)
[2022-09-27] MEDS ORDERED: LEXAPRO 10MG10 MG PO (11:16)
[2022-09-27] MEDS ORDERED: MORPHINE S20 MG/5 M1 PO (11:17)
[2022-09-27] MEDS ORDERED: MUCUS RELIEF600 MG PO (11:18)
[2022-09-27 11:28] LABS: NEUTROPHILS 91 % (42-75)
[2022-09-27 11:29] LABS: HYPOCHROMIA 1+; LYMPHOCYTE 2 % (20-51); MONOCYTE 5 % (3-10); POLYCHROMASIA 1+
[2022-09-27 11:31] LABS: OVALOCYTES 1+; STOMATOCYTE 1+
[2022-09-27 12:01] LABS: PROTHROMBIN TIME 12.9 SECONDS (9.0-12.0)
[2022-09-27 13:00] VITALS: BP 116/44
== END 2022-09-27 13:10 | disposition short-term general hospital (02) ==
LOC: ED 09:33
PROVIDERS: Physician Assistant
DX: I50.9 Heart failure, unspecified (principal); N17.9 Acute kidney failure, unspecified; J44.1 Chronic obstructive pulmonary disease with (acute) exacerbation; N18.9 Chronic kidney disease, unspecified; R09.02 Hypoxemia; Z87.891 Personal history of nicotine dependence; Z99.81 Dependence on supplemental oxygen
CPT/HCPCS: J1940; J7040; J7512

== ENCOUNTER → 2022-10-24 | Outpatient (CLI) | payer OTHER ==
[~2022-10-24] MED LIST changes: +ELIQUIS5 MG PO; +GOOD NEIGH1200 MG/15 PO; +LEXAPRO 10MG10 MG PO; +MORPHINE S20 MG/5 M1 PO; +MUCUS RELIEF600 MG PO; +SEPTRA DS 8001 TAB PO
[2022-10-24 07:44] LABS: POTASSIUM 3.9 mmol/L (3.5-5.1)
[2022-10-24 07:46] LABS: CALCIUM 8.5 mg/dL (8.3-10.5)
== END ==
LOC: LAB 06:50 → EDSTATUS 08:27
DX: N18.9 Chronic kidney disease, unspecified (principal)

== ENCOUNTER → 2022-11-29 | Outpatient (CLI) | payer OTHER | LOC: LAB 17:09 | DX: J10.1 Influenza due to other identified influenza virus with other respiratory manifestations (principal) ==